=== PATIENT | female | born 1985 ===

== ENCOUNTER 2022-03-27 16:06 | Outpatient (CLI) | payer OTHER | END 2022-03-27 17:36 | disposition home or self-care (01) | LOC: PRENATAL 16:06 | PROVIDERS: ATTEND Obstetrics & Gynecology Maternal & Fetal Medicine | DX: Z34.02 Encounter for supervision of normal first pregnancy, second trimester (principal); O09.521 Supervision of elderly multigravida, first trimester ==

== ENCOUNTER 2022-04-25 14:26 | Outpatient (CLI) | payer OTHER | END 2022-04-25 15:51 | disposition home or self-care (01) | LOC: PRENATAL 14:26 | PROVIDERS: ATTEND Obstetrics & Gynecology Maternal & Fetal Medicine | DX: O09.529 Supervision of elderly multigravida, unspecified trimester (principal); O34.219 Maternal care for unspecified type scar from previous cesarean delivery; O98.919 Unspecified maternal infectious and parasitic disease complicating pregnancy, unspecified trimester; Z14.8 Genetic carrier of other disease; Z3A.21 21 weeks gestation of pregnancy ==